=== PATIENT | female | born 1955 | race Caucasian/White ===

== ENCOUNTER → 2016-03-23 | Outpatient (CLI) | payer MEDICARE, MEDICAID ==
[~2016-03-23] MED LIST: ASPI1TAB PO; CLAR10CA3 PO; CLON-412 PO; CRES20TA PO; CYCL10TA PO; EFFE75CA75 PO; FENO145T PO; FOLI1TAB2 PO; LIDOCAINE 1% SDV INJ 30 ML VIAL As Ordered ONE; LORA1TAB12 PO; MIDAZOLAM INJ 2 MG/2 ML VIAL (J2250) As Ordered ONE; NEXI20CA PO; fentaNYL 100 MCG/2 ML INJECTION (J3010) As Ordered ONE
[2016-03-23 17:31] LABS: GLUCOSE CSF 65 MG/DL (40-75)
[2016-03-23 17:36] LABS: RBC CSF AUTO 2 /mm3 (0-0); WBC CSF AUTO 1 /mm3 (0-10)
[2016-03-23 17:38] LABS: APPEARANCE, CSF CLEAR (CLEAR); COLOR, CSF COLORLESS (COLORLESS); CSF DIFF IF INDICATED? NO (NO); CSF TUBE# CELL CNT TUBE 3
[2016-03-23 17:39] LABS: CSF DILUENT LOT # 6109
[2016-03-24 11:10] LABS: CSF GROUP B STREP NEGATIVE (NEGATIVE); CSF H. INFLUENZA NEGATIVE (NEGATIVE); CSF N MENINGITIDIS ACYW135 NEGATIVE (NEGATIVE); CSF STREP PNUEMO NEGATIVE (NEGATIVE)
--- NOTE | 2016-03-30 00:32 | ECWPNPC ---
PATIENT NAME: KARINA POOLE : 1955 GENDER: FEMALE VISIT DATE: 03/23/2016 DISCHARGE DATE: 03/23/161748 VISIT LOCKED DATE TIME: PHYSICIAN: KIM DAS RESOURCE: KIM DAS REASON FOR APPOINTMENT 1. SPINAL TAP MS PROTOCOL CURRENT MEDICATIONS NONE ASSESSMENTS PSEUDOTUMOR CEREBRI. TREATMENT OTHERS NOTES: NOTES: NOTES: SPINAL TAP WITH IV SEDATION - PLEASE SEE MEDITECH. PROCEDURE CODES 24958 MOD SED SAME PHYS/[place] [address] MOD SED SAME PHYS/QHP 5/>YRS FOLLOW UP F/UP WITH NEUROLOGIST/CALL NEEDED ELECTRONICALLY SIGNED BY KIM DAS MD ON 03/28/2016 AT 01:52 PM EST DISCLAIMER : THIS IS A VISIT SUMMARY EXTRACTED FROM THE [employer] CHART. IT IS NOT A COPY OF THE [employer] PROGRESS NOTE. MTDD
== END ==
LOC: M PAIN 13:00
PROVIDERS: ATTEND Anesthesiology
DX: G93.9 Disorder of brain, unspecified (principal)
CPT/HCPCS: 36415; 82784; 82945; 83916; 84157; 87015; 87070; 87102; 87205; 87252; 87802; 87899; 88108; 88313; 89050; 99152; 99153; J2250; J3010

== ENCOUNTER → 2020-02-16 | Outpatient (CLI) | payer SELFPAY ==
[~2020-02-16] MED LIST changes: -ASPI1TAB PO; +ASPI81TA26 PO; -CRES20TA PO; +CRES20TA2 PO; +CYCL-707 PO; -CYCL10TA PO; +EFFE75CA2 PO; -EFFE75CA75 PO; -FENO145T PO; +FENO145T7 PO; +FOLI1TAB11 PO; -FOLI1TAB2 PO; -LIDOCAINE 1% SDV INJ 30 ML VIAL As Ordered ONE; -LORA1TAB12 PO; +LORA1TAB4 PO; -MIDAZOLAM INJ 2 MG/2 ML VIAL (J2250) As Ordered ONE; -fentaNYL 100 MCG/2 ML INJECTION (J3010) As Ordered ONE
== END ==
LOC: M LABSMTC 14:06
PROVIDERS: ATTEND Pediatrics
DX: Z20.828 Contact with and (suspected) exposure to other viral communicable diseases (principal)